=== PATIENT | male | born 1980 | race Caucasian/White ===

== ENCOUNTER → 2020-01-29 | Outpatient (CLI) | payer OTHER ==
[~2020-01-29] MED LIST: ACET325T38 PO; CIPR500T78 PO; DOXY-233 PO; HYDR-1231 PO; HYDR118S10 PO
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
== END ==
LOC: RAD 18:47
PROVIDERS: ATTEND Nurse Practitioner Family
DX: S40.012A Contusion of left shoulder, initial encounter (principal); S09.93XA Unspecified injury of face, initial encounter; M70.52 Other bursitis of knee, left knee; G50.1 Atypical facial pain; J34.89 Other specified disorders of nose and nasal sinuses; V87.7XXA Person injured in collision between other specified motor vehicles (traffic), initial encounter
CPT/HCPCS: 70160; 70200

== ENCOUNTER → 2022-03-02 | Outpatient (CLI) | payer OTHER ==
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
== END ==
LOC: RAD 16:45
PROVIDERS: ATTEND Registered Nurse Critical Care Medicine
DX: S13.8XXA Sprain of joints and ligaments of other parts of neck, initial encounter (principal); V87.7XXA Person injured in collision between other specified motor vehicles (traffic), initial encounter
CPT/HCPCS: 72040

== ENCOUNTER → 2022-05-09 | Outpatient (CLI) | payer OTHER | LOC: LAB 16:07 | PROVIDERS: ATTEND Family Medicine | DX: Z01.89 Encounter for other specified special examinations (principal) | CPT/HCPCS: 89321 ==